=== PATIENT | male | born 1990 | race Caucasian/White ===

== ENCOUNTER → 2023-06-21 10:26 | Outpatient (REF) | payer OTHER, SELFPAY ==
[2023-06-21 10:49] VITALS: BP 124/83; BP_SYST 70
[2023-06-21 11:45] VITALS: BP 129/96
[2023-06-21 11:59] LABS: INR 1.03; PT 13.3 Sec (11.4-14.6)
== END ==
LOC: RADI 10:26
PROVIDERS: ATTENDING PHYSICIAN Family Medicine; REFERRING PHYSICIAN Physician Assistant
DX: M51.26 Other intervertebral disc displacement, lumbar region (principal); M48.061 Spinal stenosis, lumbar region without neurogenic claudication; M51.36 Other intervertebral disc degeneration, lumbar region; M54.50 Low back pain, unspecified; R20.0 Anesthesia of skin
CPT/HCPCS: 36415; 62323; 85610

== ENCOUNTER → 2023-10-02 13:25 | Outpatient (REF) | payer OTHER, SELFPAY ==
[2023-10-02 13:30] VITALS: BP 128/93; BP_SYST 94
[2023-10-02 14:30] VITALS: BP 127/82; BP_SYST 77
[2023-10-02 14:56] VITALS: BP 127/82
== END ==
LOC: RADI 13:25
PROVIDERS: ATTENDING PHYSICIAN Family Medicine
DX: M54.50 Low back pain, unspecified (principal)
CPT/HCPCS: 62323

== ENCOUNTER 2023-10-03 22:48 | Observation (INO) | payer OTHER, SELFPAY ==
[2023-10-03] VITALS (7 sets, daily range): BP systolic 106–128; BP diastolic 65–80; BMI 26.1; BMI 25.8
[2023-10-03] MEDS: NSS 1000 IV (15:53)
[2023-10-03] MEDS: FIORICET 1 TAB PO (15:54)
[2023-10-03] MEDS: BENADRYL 25 MG IV (16:02)
[2023-10-03] MEDS: REGLAN 10 MG IV (16:03)
--- NOTE | 2023-10-03 18:56 | ED.GENMED ---
History of Present Illness
<Tiera Acharya PA-C - Last Filed: 10/05/23 09:07>
General
Chief Complaint: Headache
Source: patient
Exam Limitations: none
Time Seen by Provider: 10/03/23 14:52
Nursing documentation reviewed up to this point in time: agreed with
History of Present Illness
History of Present Illness:
33 y/o M with h/o migraines previously
had an L5 epidural steroid shot by IR (musa) yesterday AM
during the procedure, the patient was told that there was a little spinal fluid so he had to reposition the needle
pt says he felt fine following the procedure
he even played a round of golf
mild back pain this morning when he woke up
gradually over the course of the morning on the way to work and while at work he got an onset of a global headache tat became severe overtime; he denies that it was very sudden in nature
but it was severe krupa with standing
he has never had a headache like that before
he tried tylenol and motrin without relief
he had no vision changes, vomiting, nausea, weakness, numbness in arms
he feels much better lying flat
Past History
<Tiera Acharya PA-C - Last Filed: 10/05/23 09:07>
Past History
ED Past Medical History: Other (Crohn's)
ED Past Surgical History: Appendectomy (bowel resection) and Tonsilectomy
Social History
Tobacco: Smoker
Alcohol: Occasional
Drug: None
Personal: Single
Living: with family
Employment: Employed
Review of Systems
<Tiera Acharya PA-C - Last Filed: 10/05/23 09:07>
Review of Systems
Allergies reviewed?: Yes
All Other Systems: Not applicable
Phy Exam
<Tiera Acharya PA-C - Last Filed: 10/05/23 09:07>
Physical Exam
Physical Exam:
GENERAL: Alert , in no apparent distress, looks comfortable lying flat
HEAD: NCAT
EYE: pupils equal and reactive, no nystagmus, minimal photophobia
NECK: Supple,full rom, nontender
ENT: o/p clr, mmm.
CARDIAC: Regular rate and rhythm . no edema
LUNGS: Clear breath sounds bilaterally, no acute respiratory distress, no wheezes/rales/rhonchi
ABDOMEN: Soft, without focal tenderness, no r/g, no cvat
NEUROLOGICAL: Alert and orientedx 4, cn intact, no facial asymmetry, 5/5 strength in UE/LE, sensation intact, romberg neg, ambulates without assistance, neg pronator drift
SKIN: Warm and dry, skin intact.
back with a bandaid; no streaking, no bruising, no bleeding, no leaking
MUSCULOSKELETAL: No edema, well perfused.
PSYCH: Normal and appropriate interaction.
Course
<Tiera Acharya PA-C - Last Filed: 10/05/23 09:07>
Orders/Labs/Results
Orders:
Orders
10/03/23 Breakfast
Regular
At Your Request: Limited Participation
10/03/23 15:48
0.9% Sodium Chloride 1000 ml [Nss] 1,000 ml IV BOLUS
Butalb/Acetaminophen/Caffeine [Fioricet] 1 tab PO NOW STA
Diphenhydramine [Benadryl] 25 mg IV NOW STA
Metoclopramide [Reglan] 10 mg IV NOW STA
10/03/23 18:09
CT Head W/o Iv Contrast Urgent
Comment:
Reason For Exam: SEVERE HEADACHE AFTER EPIDURAL
10/03/23 21:43
Butalb/Acetaminophen/Caffeine [Fioricet] 2 tab PO NOW STA
10/03/23 22:23
Admit/Transfer Patient As Directed
Co-Sign Provider:
Level of Care: Observation services
Assign to:: Medical/Surgical
Physician / Group: [facility]
Diagnosis: Headache
Code Status As Directed
Resuscitation Status: Full Code
PRN Pain Medication Management As Directed
May give lesser potent ordered pain med per pt: Yes
preference::
Protocol:: Medication orders for pain may be administered in a
manner that supports deferring to patient preference
when the pt is:
- Requesting an ordered lesser potent pain medication.
Least to most potent pain medications are defined
as: acetaminophen < NSAID < tramadol < opioids
(morphine, oxycodone, hydromorphone).
- Requesting a lesser dose of the same medication IF
ORDERED.
- Requesting a less intrusive route of administration
if both routes are prescribed by the provider (PO <
IV).
10/03/23 23:46
Acetaminophen [Tylenol] 650 mg PO Q4HPRN PRN
Ketorolac [Toradol] 15 mg IV Q6HPRN PRN
Metoclopramide [Reglan] 10 mg IV Q6HPRN PRN
10/03/23 23:46
[facility] CONSULT Routine
Consulting Provider: Eliazar Shetty
Was physician already notified: Yes
Reason for Consult/Procedure: Post-LP Headache
Acknowledgement that appropriate orders are entered: N/A
Activity As Directed
Activity Level: Bedrest
Head of Bed-Restrictions As Directed
Keep head of bed flat: Yes
I/O [Intake/ Output] As Directed
Frequency: Per unit guidelines
Neurological Checks As Directed
Frequency: q4h
Pneumatic Compression Sleeves As Directed
Type: Knee high
Vital Signs As Directed
Frequency: Per unit guidelines
Oxygen Therapy [O2 Therapy] [RESP] Routine
Titrate/Wean O2 to maintain O2 sat greater than (%): 94
DX Deep Vein Thrombosis Video Routine
10/04/23 06:18
Basic Metabolic Panel IN AM
Complete Blood Count/No Diff IN AM
Vital Signs
Initial and Last Documented VS:
Initial Vital Signs
Temp Pulse Resp BP Pulse Ox
98.0 F 76 18 128/80 98
10/03/23 14:19 10/03/23 14:19 10/03/23 14:19 10/03/23 14:19 10/03/23 14:19
Last Documented Vital Signs
Temp Pulse Resp BP Pulse Ox
98.1 F 58 18 116/72 99
10/04/23 09:13 10/04/23 09:13 10/04/23 09:13 10/04/23 09:13 10/04/23 09:13
<Chiki Rice, DO - Last Filed: 10/03/23 21:24>
Orders/Labs/Results
Orders:
Orders
10/03/23 Breakfast
Regular
At Your Request: Limited Participation
10/03/23 15:48
0.9% Sodium Chloride 1000 ml [Nss] 1,000 ml IV BOLUS
Butalb/Acetaminophen/Caffeine [Fioricet] 1 tab PO NOW STA
Diphenhydramine [Benadryl] 25 mg IV NOW STA
Metoclopramide [Reglan] 10 mg IV NOW STA
10/03/23 18:09
CT Head W/o Iv Contrast Urgent
Comment:
Reason For Exam: SEVERE HEADACHE AFTER EPIDURAL
10/03/23 21:43
Butalb/Acetaminophen/Caffeine [Fioricet] 2 tab PO NOW STA
10/03/23 22:23
Admit/Transfer Patient As Directed
Co-Sign Provider:
Level of Care: Observation services
Assign to:: Medical/Surgical
Physician / Group: [facility]
Diagnosis: Headache
Code Status As Directed
Resuscitation Status: Full Code
PRN Pain Medication Management As Directed
May give lesser potent ordered pain med per pt: Yes
preference::
Protocol:: Medication orders for pain may be administered in a
manner that supports deferring to patient preference
when the pt is:
- Requesting an ordered lesser potent pain medication.
Least to most potent pain medications are defined
as: acetaminophen < NSAID < tramadol < opioids
(morphine, oxycodone, hydromorphone).
- Requesting a lesser dose of the same medication IF
ORDERED.
- Requesting a less intrusive route of administration
if both routes are prescribed by the provider (PO <
IV).
10/03/23 23:46
Acetaminophen [Tylenol] 650 mg PO Q4HPRN PRN
Ketorolac [Toradol] 15 mg IV Q6HPRN PRN
Metoclopramide [Reglan] 10 mg IV Q6HPRN PRN
10/03/23 23:46
[facility] CONSULT Routine
Consulting Provider: Eliazar Shetty
Was physician already notified: Yes
Reason for Consult/Procedure: Post-LP Headache
Acknowledgement that appropriate orders are entered: N/A
Activity As Directed
Activity Level: Bedrest
Head of Bed-Restrictions As Directed
Keep head of bed flat: Yes
I/O [Intake/ Output] As Directed
Frequency: Per unit guidelines
Neurological Checks As Directed
Frequency: q4h
Pneumatic Compression Sleeves As Directed
Type: Knee high
Vital Signs As Directed
Frequency: Per unit guidelines
Oxygen Therapy [O2 Therapy] [RESP] Routine
Titrate/Wean O2 to maintain O2 sat greater than (%): 94
DX Deep Vein Thrombosis Video Routine
10/04/23 06:18
Basic Metabolic Panel IN AM
Complete Blood Count/No Diff IN AM
Vital Signs
Initial and Last Documented VS:
Initial Vital Signs
Temp Pulse Resp BP Pulse Ox
98.0 F 76 18 128/80 98
10/03/23 14:19 10/03/23 14:19 10/03/23 14:19 10/03/23 14:19 10/03/23 14:19
Last Documented Vital Signs
Temp Pulse Resp BP Pulse Ox
98.1 F 58 18 116/72 99
10/04/23 09:13 10/04/23 09:13 10/04/23 09:13 10/04/23 09:13 10/04/23 09:13
<Tiera Acharya PA-C - Last Filed: 10/05/23 09:07>
MDM/Problems Addressed
Differential Diagnosis Includes:
csf leak, migraine, less liely epidural csf leak
MDM/Problems Addressed:
33 y/o M
h/o migraines
here with severe positional headache
gradual onset today
had epidural injection yesterday and was told that there may have been a littel spinal fluid leak
pt examines like csf leak headache
looks well lying down
normal exam
minimal photophobia
neuro intact
pain wors with sitintg up
noo vision loss
d/w ed attending
i also spoke with both anesthesiologist and dr. shetty on for IR and ultimately dr. vigil
they all agree that this is likely csf leak and would offer blood patch, as outaptient tomorrow
pt was treated with migraine meds and feels much better
arrived and said that he told her it was a sudden onset of worst headache of life; this was not the story he told me
d/w christiana noguera will CT noncon head and likely d/c home
i do suspect this was more gradual and there was some miscommunication because he was so sore
<Tiera Acharya PA-C - Last Filed: 10/05/23 09:07>
*Critical Care Note
Total Time (30-74mins, 75-104mins- exclusive of procedures): Not Applicable
ED Attending Note
<Tiera Acharya PA-C - Last Filed: 10/05/23 09:07>
-
Portions of this chart may have been created with voice recognition software.� Occasional wrong word or��sound alike� substitutions may have occurred due to the inherent limitations of voice recognition software.
<Chiki Rice DO - Last Filed: 10/03/23 21:24>
ED Attending Note
Patient seen and examined by attending physician: Yes
I performed the substantive portion of visit, reviewed & personally made and approve the management plan that is documented in note by myself or LIBERTY.: Yes
ED Attending Note:
33-year-old male presents with postural headache after epidural tamp that likely did puncture the door. On my evaluation he appears well. CT does show some pneumocephalus. Case was discussed with interventional radiology as well as neurosurgery
and the consensus is not to do anything different in this case. However he is unable to stand up without severe headache. Will admit for likely blood patch by IR in the morning.
Discharge Plan
Departure
Patient Disposition: Admit
Date of Disposition: 10/03/23
Time of Disposition: 21:23
Admit to: Med/Surg
Presentation/result/management discussed w/ accepting MD/DO: Hospitalist
Condition: Fair
Discharge Problem:
CSF leak, Headache, postoperative pneumocephalus
Interventions
Interventions:
*Risk Screen - Suicide Last Done: 10/03/23 14:23
*General Assessment Last Done: 10/03/23 14:23
*Neglect/Abuse Screening Last Done: 10/03/23 14:23
ED- Fall Risk Assessment Last Done: 10/03/23 16:09
*ED COVID-19 Vaccine History Last Done: 10/03/23 16:10
*Nursing Disposition Last Done: 10/03/23 23:40
ED- Neurological Assessment Last Done: 10/03/23 16:09
Discharge Date and Time
Discharge Date/Time: 10/03/23 23:40
[2023-10-03] MEDS: FIORICET 2 TAB PO (21:49)
--- NOTE | 2023-10-03 22:28 | HPS.HSE ---
Family Physician
-
Family Physician: Diego Johnson
Chief Complaint
-
Headache
History of Present Illness
Patient is a 33y M with PMH significant for ADHD and low back pain who presents to ED complaining of headache. Patient states that he underwent LESI on 10/01 for chronic low back pain. He felt fairly well post-procedure and even played golf
yesterday afternoon. He had a mild headache last PM. He woke this AM with worse headache. When he went to work, he noted that headache was quite severe when standing / sitting upright. Pain was much improved by lying flat. Symptoms persisted
throughout the day and patient presented to the ED for further evaluation.
In the ED, patient continues to positional headache despite medications given here.
He is fairly comfortable when lying supine.
Medical History
Past Medical History
Past Medical History: Reports Other
Additional Past Medical History:
ADHD
Low Back Pain
Crohn's Disease
Past Surgical History: Reports Other
Additional Past Surgical History:
Appendectomy
Partial Small Bowel Resection
Social History
Tobacco: Former Smoker (Brief smoking in early 20s.)
Alcohol: Occasional
Drug: None
Personal:
Family History
Family History: Not pertinent
Allergies / Home Medications
Allergies reflects when Allergies were last updated in [facility].
Home Medications with original date entered in [facility]
Allergy/Medication List:
Allergies
Allergy/AdvReac Type Severity Reaction Status Date / Time
No Known Allergies Allergy Verified 08/25/18 19:57
Home Medications
dextroamphetamine-amphetamine 5 mg tablet (Adderall) 5 mg PO DAILY 06/21/23
butalbital 50 mg-acetaminophen 300 mg-caffeine 40 mg-codeine 30 mg cap (Fioricet with Codeine) 1 cap PO Q4H PRN HEADACHE #10 caps 10/03/23
Review of Systems
-
History Source: Patient
A 12 point ROS was completed and negative except as noted: Yes
Constitutional: Denies Fever or Chills
Respiratory: Denies Cough or Trouble Breathing
Cardiac: Denies Chest Pain or Palpitations
Abdomen/GI: Denies Abdominal Pain, Nausea, Vomiting or Diarrhea
: Denies Dysuria, Frequency or Flank Pain
Neurological: Reports Dizzy and Headache
Psych: Denies Depression or Anxiety
Physical Exam
Vital Signs
Vital Signs
Temp Pulse Resp BP Pulse Ox
98.0 F 70 14 106/67 98
10/03/23 14:19 10/03/23 20:30 10/03/23 20:30 10/03/23 19:00 10/03/23 14:19
Physical Exam
General: Other (33y M in mild distress due to headache)
HEENT: Moist mucous membranes and PERRLA
Respiratory: Clear; No Wheezes, Rales or Rhonchi
Cardiac: S1/S2 and Regular Rhythm; No Murmur
GI: Soft, Non Tender, Non Distended and Normal Bowel Sounds
Musculoskeletal: No Clubbing, No Cyanosis and No Edema
Neuro: AO x 3 and Nonfocal/grossly intact
Impression/Plan
-
A/P: Patient is a 33y M with PMH significant for ADHD and Crohn's (not on any active treatment) who presents to ED complaining of headache s/p LESI done yesterday.
Post-LP Headache
- Observe overnight for further evaluation and treatment.
- Maintain supine positioning / head of bed flat.
- Meds as needed for additional pain control.
- IR eval in the AM for probable blood patch.
- Follow for any new / worsening symptoms in the interim.
ADHD
Low Back Pain
Crohn's Disease
- Stable. No other acute / active symptoms at this time.
DVT Prophylaxis: SCDs
Code Status: Full
[2023-10-04] MEDS: TORADOL 15 MG IV
--- NOTE | 2023-10-04 00:34 | PTCARENOTE ---
Pt. arrived to unit from ED via stretcher. Pt. able to safely ambulate into room 318-2. Pt. AAOx3, pleasant, able to make needs known. Boxed lunch provided. Oriented to unit. Call iverson within reach. Plan of care ongoing.
[2023-10-04 06:47] LABS: Hematocrit 38.1 % (39.0-52.0); Hemoglobin 13.2 g/dL (13.0-18.0); Mean Corp Hgb Conc. 34.6 g/dL (33.0-37.0); Mean Corpuscular Hgb 28.1 pg (27.0-31.0); Mean Corpuscular Volume 81.1 fL (80.0-94.0); Mean Platelet Volume 10.8 fL (7.4-10.4); Platelet Count 205 10^3/uL (130-400); Red Cell Dist. Width 12.6 % (11.5-14.5); White Blood Cell Count 7.4 10^3/uL (4.8-10.8)
[2023-10-04 07:00] VITALS: BP 90/47
[2023-10-04 07:09] LABS: Blood Urea Nitrogen 23 mg/dl (9-20); Calcium 8.7 mg/dl (8.4-10.2); Carbon Dioxide 24 mmol/L (22-30); Chloride 109 mmol/L (98-107); Estimated Creatinine Clearance > 125 ml/min; Glucose 103 mg/dl (70-99); Potassium 4.3 mmol/L (3.5-5.1); Sodium 137 mmol/L (135-145); eGFR > 60.00
--- NOTE | 2023-10-04 07:45 | W.PN.HOSP.TC ---
Addendum entered and electronically signed by Joesph Suarez MD 10/04/23 10:27:
I saw and evaluated the patient. I reviewed the resident�s note and agree with findings and plan as documented in the resident�s note.
No h/a while laying flat.
Gen: NAD, AAOx3.
Eyes: EOMI, PERRLA, no scleral icterus.
Neck: supple.
CV: RRR, +S1/S2, no m/r/g.
Resp: CTAB, no rales, wheezes, or rhonchi.
Abd: +BS, soft, NT, ND
Skin: No rashes.
Neuro: CN 2-12 intact, non-focal.
Psych: Normal mood and affect.
Spinal headache:
-s/p blood patch this AM
-d/c later today after laying supine for 2 hours post-procedure
Original Note:
Today's Communication/Plan
-
d/c home today
Assessment / Plan
Assessment / Plan
#Post-LP Headache- Spinal headache
- Received Blood patch with IR today
- L5 epidural steroid shot by IR (musa) on 10/02/23
- Maintain supine positioning / head of bed flat.
- Tylenol and toradol as needed for additional pain control.
- Headache should start to improve by this evening or tomorrow.
- encouraged patient to take it easy for a few days and maintain hydration
- CT: Multiple scattered small foci of pneumocephalus are likely secondary to the reported history of a recent epidural injection.
#ADHD
#Low Back Pain
#Crohn's Disease
- Stable. No other acute / active symptoms at this time.
DVT Prophylaxis: SCDs
Code Status: Full
Anticipated Discharge: Today
Subjective/Interval History
-
Date of Service: October 04, 2023
Objective Data
-
Labs:
Laboratory Results
10/04/23
06:18
WBC 7.4
Hgb 13.2
Hct 38.1 L
Plt Count 205
Sodium 137
Potassium 4.3
Chloride 109 H
Carbon Dioxide 24
BUN 23 H
Creatinine 0.8
Glucose 103 H
Calcium 8.7
Vital Signs:
Vital Signs
Temp Pulse Resp BP Pulse Ox
97.9 F 70 18 112/65 97
10/03/23 23:48 10/03/23 23:48 10/03/23 23:48 10/03/23 23:48 10/03/23 23:48
I&O
10/03/23 10/04/23 10/05/23
06:59 06:59 06:59
Intake Total 480 / 480
Balance 480 / 480
Review of Systems
-
History Source: Patient
Constitutional: Denies Fever
Respiratory: Denies Cough
Cardiac: Denies Chest Pain
Abdomen/GI: Denies Abdominal Pain
Musculoskeletal: Denies Joint Pain
Neuro: Reports Headache; Denies Dizzy, Weakness or Numbness
Hematologic / Lymphatic: Denies Bleeding
Physical Exam
-
General: Well Developed and Well Nourished
HEENT: Normocephalic and Atraumatic
Respiratory: Clear to Auscultation
Cardiac: Regular Rhythm
GI: Soft, Nontender and Nondistended
Skin: Warm, Dry and Rash
Neuro: Awake, Alert, Oriented and Nonfocal/Grossly Intact
Psych: Calm
Data Reviewed
-
CT Scan: Report Reviewed by me and Discussed with Physician
Labs: Labs Reviewed by me, Discussed with Physician and Discussed with Patient
[2023-10-04 08:00] VITALS: BP 114/73; BP_SYST 57
--- NOTE | 2023-10-04 08:46 | W.PN.UPDATE ---
Update Note
Progress Note Update
Positional spinal headache after lumbar epidural steroid injection. Headache is severe, only occurs when standing, and began the morning after the TALAT.
During TALAT, the dura/arachnoid at L4-5 was inadvertently punctured with the 22 gauge spinal needle, as evidenced by CSF coming through the needle. This was discussed with the patient at the time of discovery, and a separate injection was
successfully performed at L5-S1. Patient was reassured that spinal headache and other complications of dural puncture are low.
Unfortunately he did develop spinal headache, likely due to low CSF pressure from leakage from the dural puncture at L4-5. These headaches tend to resolve eventually without treatment, however blood patch is a way to try to 'plug the hole' more
quickly, and therefore improve the headache more quickly.
Blood patch performed - 10 cc of the patient's blood was injected into the epidural space at L4-5. Bedrest for 2 hours to give blood time to seal the leak, and then stable for discharge from IR perspective. Headache should start to improve by this
evening or tomorrow, encouraged patient to take it easy for a few days and drink alot of water. Caffeine also usually helps.
All patient questions answered.
[2023-10-04 09:13] VITALS: BP 116/72
--- NOTE | 2023-10-04 10:25 | W.DCSUMMARY ---
Addendum entered and electronically signed by Joesph Suarez MD 10/04/23 12:58:
Read, reviewed, and agree. See same day progress note for additional details.
Original Note:
Discharge Summary
Discharge Data
Date of Admission: 10/03/23
Date of Discharge: 10/04/23
-
Pending Results: No
Hospital Course
Discharging Physician : Yves Patel MD ; Joesph Suarez MD
Disposition : Home
Primary care physician : Diego Johnson
Principal Discharge diagnosis : Spinal headache
Chronic Discharge diagnosis : ADHD, low back pain, Crohn's disease, migraine
Hospital Course : 33-year-old male with history of migraines presented to the emergency department with complaints of severe headache. Reportedly patient had an L5 epidural steroid injection on 10/02/2023 and he felt fine following the procedure and
even was able to play a round of golf. On 10/03/2023 he started to notice sudden onset of global headache that became severe over time especially with standing. He denied any other constitutional symptoms including vision changes, vomiting, nausea,
vomiting weakness, numbness. He was evaluated and a CT Head was performed which showed multiple scattered small foci of pneumocephalus likely secondary to reported history of recent epidural injection. Patient was admitted in hospital for
consideration of blood patch by IR. Patient was seen by IR in the morning and received a blood patch-10 cc of patient's blood was injected into the epidural space at L4-5. Bedrest for 2 hours was recommended to give adequate time for blood to seal
the leak. Patient was cleared by IR for discharge. Patient was informed that his headache should start to improve by this evening or tomorrow. Patient reports his headache is now 3/10 which was initially 10/10. He was also encouraged to maintain
hydration
Important imaging findings : CT Head W/o Iv Contrast
FINDINGS:
The ventricles are normal in size, configuration, and position. Multiple scattered small foci of pneumocephalus noted in the right frontal and parietal convexities, along the septum pellucidum, and in the basal cisterns. No intra- or extra-axial
mass, hemorrhage, or fluid collection. No areas of abnormal mass effect or attenuation are noted. The imaged paranasal sinuses and mastoid air cells are clear.
IMPRESSION:
Multiple scattered small foci of pneumocephalus are likely secondary to the reported history of a recent epidural injection.
Procedure findings : Fluoroscopically guided lumbar spine epidural blood patch- Technically successful epidural blood patch
Discharge Plan
-
Patient Disposition: Home (Routine Discharge)
Discharge Diagnosis/Procedures: Spinal headache, ADHD, low back pain, Crohn's disease, migraine
Condition: Good
Diet: No restrictions
Activity: No restrictions
Additional Activity: No strenuous activity for 2 to 3 days.
Driving Restrictions: As prior to admission
Bathing Restrictions: None
Referrals:
Diego Johnson MD [Family Provider] - in less than 1 week
Prescriptions:
New
[id number] [Fioricet with Codeine] [id number] mg capsule
1 cap PO Q4H PRN (Reason: HEADACHE) Qty: 10 0RF
No Action
dextroamphetamine-amphetamine [Adderall] 5 mg Tablet
5 mg PO DAILY
Discharge Orders:
Discharge Patient (As Directed); Ordered 10/04/23
Ordered By: Yves Patel
Discharge Date and Time
Print Language: [id number]
== END 2023-10-04 12:04 | disposition home or self-care (01) ==
LOC: 3 WEST ACU 22:48
PROVIDERS: ADMITTING PHYSICIAN Hospitalist; ATTENDING PHYSICIAN Internal Medicine; EMERGENCY PHYSICIAN Emergency Medicine; FAMILY PHYSICIAN Family Medicine
DX: G97.1 Other reaction to spinal and lumbar puncture (principal); Y84.4 Aspiration of fluid as the cause of abnormal reaction of the patient, or of later complication, without mention of misadventure at the time of the procedure; Y92.9 Unspecified place or not applicable; R51.9 Headache, unspecified; F17.200 Nicotine dependence, unspecified, uncomplicated; K50.90 Crohn's disease, unspecified, without complications; G93.89 Other specified disorders of brain; F90.9 Attention-deficit hyperactivity disorder, unspecified type; M54.50 Low back pain, unspecified; G89.29 Other chronic pain; Z90.49 Acquired absence of other specified parts of digestive tract
CPT/HCPCS: 62273; 70450; 80048; 85027; 96361; 96374; 96375; 99285; G0378

== ENCOUNTER 2023-10-08 13:22 | Outpatient (REF) | payer OTHER, SELFPAY ==
[2023-10-08 13:33] VITALS: BP 129/81; BP_SYST 84
[2023-10-08 15:30] VITALS: BP 115/67
[2023-10-08] MEDS: TYLENOL 650 MG PO (16:13)
[2023-10-08 16:30] VITALS: BP 116/74
== END 2023-10-08 16:43 | disposition home or self-care (01) ==
LOC: RADI 13:22
PROVIDERS: ATTENDING PHYSICIAN Radiology Vascular & Interventional Radiology; FAMILY PHYSICIAN Family Medicine
DX: G97.1 Other reaction to spinal and lumbar puncture (principal); Y84.4 Aspiration of fluid as the cause of abnormal reaction of the patient, or of later complication, without mention of misadventure at the time of the procedure
CPT/HCPCS: 62273

== ENCOUNTER 2023-10-08 23:42 | Observation (INO) | payer OTHER, SELFPAY ==
[2023-10-08 21:21] VITALS: BP 123/80
[2023-10-08 21:47] VITALS: BP 121/70
[2023-10-08 21:50] VITALS: BMI 26.0
[2023-10-08 22:00] VITALS: BP 124/76
--- NOTE | 2023-10-08 22:30 | ED.GENMED ---
History of Present Illness
General
Chief Complaint: Headache
Source: patient, spouse and physician
Exam Limitations: none
Time Seen by Provider: 10/08/23 21:56
Nursing documentation reviewed up to this point in time: agreed with
History of Present Illness
History of Present Illness:
Patient very pleasant 33-year-old male presents with headache, he underwent epidural steroid injection recently, postoperatively had a headache had a blood patch did not really help too much was started on Fioricet with some relief recently had a
second blood patch did not get too much relief, having headaches when he sits forward, feels better lying flat, nausea without vomiting no fevers, he spoke with his treating physician referred him here, plan for some caffeine, consideration for MRI
to look for low flow state versus other causes does not chronically get headaches,
Past History
Past History
ED Past Medical History: Other (Crohn's)
ED Past Surgical History: Appendectomy (bowel resection) and Tonsilectomy
Social History
Tobacco: Smoker
Alcohol: Occasional
Drug: None
Personal: Single
Living: with family
Employment: Employed
Review of Systems
Review of Systems
All Other Systems: Not applicable
Constitutional: Denies fever or fatigue
Respiratory: Reports no symptoms
Cardiac: Reports no symptoms
ABD/GI: Reports nausea
Musculoskeletal: Reports no symptoms
Neurological: Reports headache
Psychiatric: Reports no symptoms
Phy Exam
Physical Exam
Physical Exam:
Physical Exam
General: Nontoxic male lying lights are off
Neck: No jaundice
Lungs: no acute respiratory distress. clear bilaterally
Neuro: alert and oriented. no focal neurological deficits
Skin: no rash
Psychiatric: well kept. interactive and cooperative
Extremities: no edema.
Course
Orders/Labs/Results
Orders:
Orders
10/08/23 22:11
0.9% Sodium Chloride 1000 ml [Nss] 1,000 ml IV BOLUS
10/08/23 22:19
Acetaminophen 1000MG/100Ml [Ofirmev] 1,000 mg in 100 ml IV ONCE
Acetaminophen IV Indication:: ED Narcotic Naive Pt-ONCE
10/08/23 22:27
Caffeine Citrate [Caffeine Citrate Oral Solution] 300 mg PO NOW STA
10/08/23 22:30
Complete Blood Count/With Diff Urgent
Comprehensive Metabolic Panel Urgent
10/09/23 06:00
MRI Brain [MR Brain W/o & With Contrast] IN AM
Comment:
Reason For Exam: post dural headache
OK for patient to be off Cardiac Monitoring for MRI: Yes
Recent pill cam endoscopy?: No
Abnormal Lab Results
10/08/23
22:30
WBC 11.6 H 10^3/uL
(4.8-10.8)
MPV 10.7 H fL
(7.4-10.4)
Abs Immat Gran (auto) 0.1 H 10^3/uL
(0-0.05)
Absolute Neuts (auto) 8.0 H 10^3/uL
(1.4-6.5)
Absolute Monos (auto) 0.8 H 10^3/uL
(0.1-0.6)
Lymphocytes % 18.6 L %
(20.5-51.1)
BUN 23 H mg/dl
(9-20)
Glucose 108 H mg/dl
(70-99)
ALT 60 H U/L
(0-50)
10/08/23 22:30
10/08/23 22:30
Vital Signs
Initial and Last Documented VS:
Initial Vital Signs
Temp Pulse Resp BP Pulse Ox
98.5 F 83 16 123/80 98
10/08/23 21:21 10/08/23 21:21 10/08/23 21:21 10/08/23 21:21 10/08/23 21:21
Last Documented Vital Signs
Temp Pulse Resp BP Pulse Ox
98.5 F 76 22 121/70 95
10/08/23 21:21 10/08/23 21:47 10/08/23 21:47 10/08/23 21:47 10/08/23 21:47
MDM/Problems Addressed
Differential Diagnosis Includes:
Postdural headache, low-flow headache doubt [employer] TE[employer]ER infection
Patient had a CT a few days ago will not repeat as he looks well
MDM/Problems Addressed:
Headache
*Radiology
Radiology exam reviewed: other (Verbal report on his CT from his referring radiologist from a few days a)
*Pulse Oximetry
Patient hypoxic: no
*Critical Care Note
Total Time (30-74mins, 75-104mins- exclusive of procedures): Not Applicable
Data Reviewed
Review of Other/Old Records Reveals: Labs
Source: patient and spouse
Prescriptions/Medications Considered But Not Given:
Steroid
Further Testing Considered But Not Given:
MRI ordered routine in a.m.
Update Note
Update Note:
Update numerous discussions with referring interventional radiologist General radiology will be admitted, will start on fluids Tylenol caffeine MRI in the a.m., I do not think this is a [employer] TE[employer] infection
ED Attending Note
-
Portions of this chart may have been created with voice recognition software.� Occasional wrong word or��sound alike� substitutions may have occurred due to the inherent limitations of voice recognition software.
Discharge Plan
Departure
Patient Disposition: Admit
Date of Disposition: 10/08/23
Time of Disposition: 23:00
Admit to: Med/Surg
Presentation/result/management discussed w/ accepting MD/DO: Hospitalist
Patient with high blood pressure during this ER visit?: No
Condition: Good
Discharge Problem:
CSF leak, Headache
Prescriptions:
No Action
dextroamphetamine-amphetamine [Adderall] 5 mg Tablet
5 mg PO DAILY
rnifdnjwuk-[id number] [Fioricet with Codeine] [id number] mg capsule
1 cap PO Q4H PRN (Reason: HEADACHE) Qty: 10 0RF
Referrals:
Diego Johnson MD [Family Provider] -
Interventions
Interventions:
*Risk Screen - Suicide Last Done: 10/08/23 21:52
*General Assessment Last Done: 10/08/23 21:21
*Neglect/Abuse Screening Last Done: 10/08/23 21:52
ED- Fall Risk Assessment Last Done: 10/08/23 21:52
ED- Neurological Assessment Last Done: 10/08/23 21:50
Discharge Date and Time
Print Language: BURMESE
[2023-10-08] MEDS: NSS 1000 IV (22:32)
[2023-10-08] MEDS: OFIRMEV 100 IV (22:32)
[2023-10-08 22:42] LABS: % Basophils 0.3 % (0-2); % Eosinophils 4.2 % (0-6); % Immature Granulocytes 0.5 % (0-0.5); % Lymphocytes 18.6 % (20.5-51.1); % Monocytes 7.1 % (1.7-9.3); % Neutrophils 69.3 % (42.2-75.2); Absolute Eosinophils 0.5 10^3/uL (0-0.7); Absolute Immature Granulocytes 0.1 10^3/uL (0-0.05); Absolute Lymphocytes 2.2 10^3/uL (1.2-3.4); Absolute Monocytes 0.8 10^3/uL (0.1-0.6); Hematocrit 42.2 % (39.0-52.0); Hemoglobin 14.8 g/dL (13.0-18.0); Mean Corp Hgb Conc. 35.1 g/dL (33.0-37.0); Mean Corpuscular Hgb 28.1 pg (27.0-31.0); Mean Corpuscular Volume 80.1 fL (80.0-94.0); Mean Platelet Volume 10.7 fL (7.4-10.4); Nucleated Red Blood Cells % 0 % (-); Platelet Count 318 10^3/uL (130-400); Red Blood Cell Count 5.27 10^6/uL (4.70-6.10); Red Cell Dist. Width 12.8 % (11.5-14.5); White Blood Cell Count 11.6 10^3/uL (4.8-10.8)
[2023-10-08 22:58] LABS: ALT (SGPT) 60 U/L (0-50); AST (SGOT) 40 U/L (17-59); Albumin 4.2 g/dl (3.5-5.0); Alkaline Phosphatase 76 U/L (38-126); Blood Urea Nitrogen 23 mg/dl (9-20); Calcium 9.2 mg/dl (8.4-10.2); Carbon Dioxide 26 mmol/L (22-30); Chloride 104 mmol/L (98-107); Estimated Creatinine Clearance > 125 ml/min; Glucose 108 mg/dl (70-99); Potassium 4.2 mmol/L (3.5-5.1); Sodium 137 mmol/L (135-145); Total Bilirubin 0.5 mg/dl (0.2-1.3); Total Protein 6.7 g/dl (6.3-8.2); eGFR > 60.00
[2023-10-08 23:00] VITALS: BP 108/56
[2023-10-08] MEDS: CAFFEINE CITRATE ORAL SOLUTION 300 MG PO (23:01)
--- NOTE | 2023-10-08 23:45 | HPS.HSE ---
Family Physician
-
Family Physician: Diego Johnson
Chief Complaint
-
Headache
History of Present Illness
Patient is a 33y M with PMH significant for ADHD and low back pain who presents to ED complaining of headache. Patient states that he underwent LESI on 10/01 for chronic low back pain. He was admitted to on 10/02 with spinal headache
post-procedure. Patient has received blood patch x 2 on 10/03 and again on 10/07.
He feels very well when lying supine. He has no fevers / chills, numbness, tingling, focal weakness, etc. No vision changes.
Today after blood patch, patient was at home and increased his position to about 30 degrees or so. He promptly developed recurrent headache. His symptoms fully resolve when lying supine.
Patient spoke with IR who advised his return to the ED for further evaluation including MRI.
Medical History
Past Medical History
Past Medical History: Reports Other
Additional Past Medical History:
ADHD
Low Back Pain
Crohn's Disease
Past Surgical History: Reports Other
Additional Past Surgical History:
Appendectomy
Partial Small Bowel Resection
Social History
Tobacco: Former Smoker (Brief smoking in early 20s.)
Alcohol: Occasional
Drug: None
Personal:
Family History
Family History: Not pertinent
Allergies / Home Medications
Allergies reflects when Allergies were last updated in [employer].
Home Medications with original date entered in [employer]
Allergy/Medication List:
Allergies
Allergy/AdvReac Type Severity Reaction Status Date / Time
No Known Allergies Allergy Verified 08/25/18 19:57
Home Medications
dextroamphetamine-amphetamine 5 mg tablet (Adderall) 5 mg PO DAILY Neurological Condition 06/21/23
butalbital 50 mg-acetaminophen 300 mg-caffeine 40 mg-codeine 30 mg cap (Fioricet with Codeine) 1 cap PO Q4H PRN HEADACHE #10 caps 10/03/23
Review of Systems
-
History Source: Patient
A 12 point ROS was completed and negative except as noted: Yes
Constitutional: Denies Fever or Chills
EENT: Denies Sore Throat
Respiratory: Denies Cough or Trouble Breathing
Cardiac: Denies Chest Pain or Palpitations
Abdomen/GI: Denies Abdominal Pain, Nausea, Vomiting or Diarrhea
: Denies Dysuria or Frequency
Musculoskeletal: Denies Joint Pain or Edema
Neurological: Reports Headache; Denies Dizzy
Psych: Denies Depression or Anxiety
Physical Exam
Vital Signs
Vital Signs
Temp Pulse Resp BP Pulse Ox
98.5 F 68 19 108/56 94
10/08/23 21:21 10/08/23 23:00 10/08/23 23:00 10/08/23 23:00 10/08/23 23:00
Physical Exam
General: Other (33y M in mild distress due to headache)
HEENT: Moist mucous membranes and PERRLA
Respiratory: Clear; No Wheezes, Rales or Rhonchi
Cardiac: S1/S2 and Regular Rhythm; No Murmur
GI: Soft, Non Tender, Non Distended and Normal Bowel Sounds
Musculoskeletal: No Clubbing, No Cyanosis and No Edema
Neuro: AO x 3 and Nonfocal/grossly intact
Laboratory Results
-
10/08/23 22:30
10/08/23 22:30
Laboratory Results
Total Bilirubin 0.5 mg/dl (0.2-1.3) 10/08/23 22:30
AST 40 U/L (17-59) 10/08/23 22:30
ALT 60 U/L (0-50) H 10/08/23 22:30
Alkaline Phosphatase 76 U/L (38-126) 10/08/23 22:30
Impression/Plan
-
A/P: Patient is a 33y M with PMH significant for ADHD and Crohn's (not on any active treatment) who presents to ED complaining of recurrent spinal headache
Spinal Headache
- Observe overnight for further evaluation and treatment.
- Maintain supine positioning / head of bed flat.
- Meds as needed for additional pain control.
- IR eval in the AM for additional recommendations.
- Check MRI with / without contrast.
- Follow for any new / worsening symptoms in the interim.
ADHD
Low Back Pain
Crohn's Disease
- Stable. No other acute / active symptoms at this time.
DVT Prophylaxis: SCDs
Code Status: Full
[2023-10-09 00:40] VITALS: BP 110/64; BMI 25.7
[2023-10-09] MEDS: LR 1000 IV ×3 (01:28→20:54)
--- NOTE | 2023-10-09 01:33 | PTCARENOTE ---
Pt. arrived to unit from ED via stretcher. Pt. able to safely ambulate into room 336-1 on . Pt. AAOx3 and able to make needs known. Offers no complaints at this time. Oriented to unit. Call iverson within reach. Plan of care ongoing.
[2023-10-09 06:03] LABS: Hematocrit 41.5 % (39.0-52.0); Mean Corp Hgb Conc. 33.7 g/dL (33.0-37.0); Mean Corpuscular Hgb 28.5 pg (27.0-31.0); Mean Corpuscular Volume 84.3 fL (80.0-94.0); Mean Platelet Volume 10.4 fL (7.4-10.4); Platelet Count 277 10^3/uL (130-400); Red Blood Cell Count 4.92 10^6/uL (4.70-6.10); Red Cell Dist. Width 12.8 % (11.5-14.5); White Blood Cell Count 10.1 10^3/uL (4.8-10.8)
[2023-10-09 06:25] LABS: Blood Urea Nitrogen 20 mg/dl (9-20); Carbon Dioxide 28 mmol/L (22-30); Chloride 105 mmol/L (98-107); Estimated Creatinine Clearance > 125 ml/min; Glucose 94 mg/dl (70-99); Potassium 4.4 mmol/L (3.5-5.1); Sodium 137 mmol/L (135-145); eGFR > 60.00
[2023-10-09 07:54] VITALS: BP 110/62
--- NOTE | 2023-10-09 09:10 | W.PN.HOSP.TC ---
Addendum entered and electronically signed by Yulia Kam MD 10/09/23 13:04:
I saw and evaluated the patient independently. I reviewed the resident�s note and agree with findings and plan as documented by Dr. [place].
GENERAL: well developed, well nourished, male in no apparent distress
HEENT: NC/AT
HEART: regular rate and rhythm, +S1, +S2
LUNGS : clear to auscultation bilaterally
ABDOM: soft, nontender, nondistended, + bowel sounds
EXT: no cyanosis, clubbing, or edema
NEUROLOGIC: grossly intact
Headache--presumed spinal s/p epidural injection ( not LP, pt had epidural not LP) -- had 2 blood patches without relief--MRI within normal limits--await IR input for next steps - Maintain supine positioning / head of bed flat - Tylenol and toradol
as needed for additional pain control- encouraged patient to take it easy for a few days and maintain hydration- CT on admission: Multiple scattered small foci of pneumocephalus are likely secondary to the reported history of a recent epidural
injection--consideration for neuro consult, did receive IV caffeine in ED
ADHD- Continue home meds PRN
Low Back Pain--s/p epidural injection
Crohn's Disease - Stable. No other acute / active symptoms at this time.
DVT Prophylaxis: SCDs
Code Status: Full
Original Note:
Today's Communication/Plan
-
Patient's MRI shows no acute intracranial abnormalities. Awaiting IR consult.
Assessment / Plan
Assessment / Plan
#Post-LP Headache- Spinal headache
- Received Blood patch with IR today
- L5 epidural steroid shot by IR ([facility]) on 10/02/23
- Maintain supine positioning / head of bed flat.
- Tylenol and toradol as needed for additional pain control.
- Headache should start to improve by this evening or tomorrow.
- encouraged patient to take it easy for a few days and maintain hydration
- IR input appreciated
- MRI shows no acute intracranial abnormality. 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
- CT: Multiple scattered small foci of pneumocephalus are likely secondary to the reported history of a recent epidural injection.
#ADHD
- Continue home meds PRN
#Low Back Pain
#Crohn's Disease
- Stable. No other acute / active symptoms at this time.
DVT Prophylaxis: SCDs
Code Status: Full
Anticipated Discharge: 24 - 48 hours
Subjective/Interval History
-
Date of Service: October 09, 2023
Objective Data
-
Labs:
Laboratory Results
10/08/23 10/09/23
22:30 05:32
WBC 11.6 H 10.1
Hgb 14.8 14.0
Hct 42.2 41.5
Plt Count 318 D 277
Sodium 137 137
Potassium 4.2 4.4
Chloride 104 105
Carbon Dioxide 26 28
BUN 23 H 20
Creatinine 0.9 0.9
Glucose 108 H 94
Calcium 9.2 9.0
Total Bilirubin 0.5
AST 40
ALT 60 H
Alkaline Phosphatase 76
Vital Signs:
Vital Signs
Temp Pulse Resp BP Pulse Ox
97.8 F 69 18 110/62 96
10/09/23 07:54 10/09/23 07:54 10/09/23 07:54 10/09/23 07:54 10/09/23 07:54
I&O
10/08/23 10/09/23 10/10/23
06:59 06:59 06:59
Intake Total 990 / 990
Balance 990 / 990
Review of Systems
-
History Source: Patient
EENT: Reports No Symptoms Reported; Denies Blurry Vision or Eye Pain
Respiratory: Reports No Symptoms
Cardiac: Reports No Symptoms
Abdomen/GI: Reports No Symptoms
Neuro: Reports Headache; Denies Weakness, Numbness, Ataxia or Tremors
Physical Exam
-
General: Well Developed, Well Nourished and No Apparent Distress
HEENT: Normocephalic
Respiratory: Clear to Auscultation
Cardiac: Regular Rhythm and S1/S2
Neuro: AO x 3; Negative Tremors or Slurred Speech
Psych: Calm
--- NOTE | 2023-10-09 13:52 | CM ---
CM met with pt at bedside
Pt reports lives with his and 4 daughters in a 2 story home
Independent, working FT, drives
DME - none
SNF/HH - no past hx
Has ride at d/c
PCP - Dr Diego Johnson
Pharm - [facility]
Discussed OBS status
Plan - anticipate home no needs
[2023-10-09] MEDS: TYLENOL 650 MG PO (14:09)
[2023-10-09 16:13] VITALS: BP 123/73
--- NOTE | 2023-10-09 18:02 | W.PN.UPDATE ---
Update Note
Progress Note Update
Pt underwent lumbar TALAT 10/02/23, inadvertent dural puncture at L4-5 level during procedure. TALAT subsequently performed L5-S1 level. Developed headache shortly after procedure.
CT head 10/03/23 showed small volume pneumocephalus, otherwise negative.
Underwent blood patch 10/04/23 and 10/08/23 without relief. COLLINS remains positional, improve while recumbent and worse upright.
MRI 10/09/23 with incidental pineal cyst, no findings suggesting intracranial hypotension.
Today relatively comfortable while recumbent, has spent limited time sitting up and upright.
Considerations at this point 1) persistent PDPHA, 2) rebound intracranial hypertension, 3)aseptic/chemical meningitis related to initial procedure.
Clinical course with essentially only sx being positional COLLINS improved while recumbent would be atypical for rebound hypertension and chemical meningitis. At this point, patient is understandably wary of undergoing LP for further evaluation.
Recommend Neurology consultation for any additional considerations and continued symptomatic tx at this time.
d/w Dr Kam
[2023-10-09] MEDS: TORADOL 15 MG IV (20:57)
[2023-10-09 23:05] VITALS: BP 119/66
[2023-10-10 06:43] LABS: Hemoglobin 13.7 g/dL (13.0-18.0); Mean Corp Hgb Conc. 33.4 g/dL (33.0-37.0); Mean Corpuscular Hgb 27.7 pg (27.0-31.0); Mean Platelet Volume 10.3 fL (7.4-10.4); Platelet Count 285 10^3/uL (130-400); Red Blood Cell Count 4.94 10^6/uL (4.70-6.10); Red Cell Dist. Width 12.9 % (11.5-14.5); White Blood Cell Count 8.3 10^3/uL (4.8-10.8)
[2023-10-10 07:05] LABS: Blood Urea Nitrogen 24 mg/dl (9-20); Calcium 9.2 mg/dl (8.4-10.2); Carbon Dioxide 30 mmol/L (22-30); Chloride 106 mmol/L (98-107); Estimated Creatinine Clearance > 125 ml/min; Glucose 96 mg/dl (70-99); Potassium 4.8 mmol/L (3.5-5.1); Sodium 140 mmol/L (135-145); eGFR > 60.00
[2023-10-10 07:51] VITALS: BP 118/74
--- NOTE | 2023-10-10 07:53 | W.PN.HOSP.TC ---
Addendum entered and electronically signed by Yulia Kam MD 10/10/23 19:37:
I saw and evaluated the patient independently. I reviewed the resident�s note and agree with findings and plan as documented by Dr. [place].
GENERAL: well developed, well nourished, male in no apparent distress--sitting up in bed
HEENT: NC/AT
HEART: regular rate and rhythm, +S1, +S2
LUNGS : clear to auscultation bilaterally
ABDOM: soft, nontender, nondistended, + bowel sounds
EXT: no cyanosis, clubbing, or edema
NEUROLOGIC: grossly intact
Headache--presumed spinal s/p epidural injection ( not LP, pt had epidural not LP) -- had 2 blood patches without relief--MRI within normal limits--apprec IR input - Maintain supine positioning / head of bed flat - Tylenol and toradol as needed for
additional pain control- encouraged patient to take it easy for a few days and maintain hydration- CT on admission: Multiple scattered small foci of pneumocephalus are likely secondary to the reported history of a recent epidural injection--apprec
neuro consult--further w/u as outpt
ADHD- Continue home meds PRN
Low Back Pain--s/p epidural injection
Crohn's Disease - Stable. No other acute / active symptoms at this time.
DVT Prophylaxis: SCDs
Code Status: Full
Original Note:
Today's Communication/Plan
-
Neurology discussed plans for outpatient testing and evaluation. Discharged today.
Assessment / Plan
Assessment / Plan
#Post-epidural steroid injection Headache- Spinal headache
- Received Blood patch with IR today
- L5 epidural steroid shot by IR ([place]) on 10/02/23
- Maintain supine positioning / head of bed flat.
- Tylenol and toradol as needed for additional pain control.
- Headache should start to improve by this evening or tomorrow.
- encouraged patient to take it easy for a few days and maintain hydration
- IR is unsure of why the patient continues to have headaches. Recommended neuro consultation
- MRI shows no acute intracranial abnormality. 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
- Neurology Has high clinical suspicion of postdural puncture headache.
-Neuro discussed plan to obtain urgent thoracic and lumbar spine with and without contrast on an outpatient basis within the next week.
-Neuro will follow-up in outpatient.
-Clinically stable to discharge today.
- CT: Multiple scattered small foci of pneumocephalus are likely secondary to the reported history of a recent epidural injection.
#ADHD
- Continue home meds PRN
#Low Back Pain
#Crohn's Disease
- Stable. No other acute / active symptoms at this time.
DVT Prophylaxis: SCDs
Code Status: Full
Anticipated Discharge: Today
Subjective/Interval History
-
Date of Service: October 10, 2023
Objective Data
-
Labs:
Laboratory Results
10/10/23
06:19
WBC 8.3
Hgb 13.7
Hct 41.0
Plt Count 285
Sodium 140
Potassium 4.8
Chloride 106
Carbon Dioxide 30
BUN 24 H
Creatinine 0.9
Glucose 96
Calcium 9.2
Vital Signs:
Vital Signs
Temp Pulse Resp BP Pulse Ox
97.8 F 73 16 118/74 97
10/10/23 07:51 10/10/23 07:51 10/10/23 07:51 10/10/23 07:51 10/10/23 07:51
I&O
10/09/23 10/10/23 10/11/23
06:59 06:59 06:59
Intake Total 990 / 990 1440 / 1440
Balance 990 / 990 1440 / 1440
Review of Systems
-
History Source: Patient
EENT: Reports No Symptoms Reported
Respiratory: Reports No Symptoms
Cardiac: Reports No Symptoms
Abdomen/GI: Reports No Symptoms
Genitourinary: Reports No Symptoms
Neuro: Reports Headache (with standing. no headache while supine)
Physical Exam
-
General: Well Developed, Well Nourished and No Apparent Distress
Respiratory: Clear to Auscultation
Cardiac: Regular Rhythm and S1/S2
GI: Soft, Nontender, Nondistended and Normal Bowel Sounds
Musculoskeletal: No Edema
Neuro: AO x 3
Psych: Calm
--- NOTE | 2023-10-10 08:26 | CON.NEURO4 ---
Addendum entered and electronically signed by Rodrick Mary MD 10/10/23 14:41:
I saw and evaluated patient I reviewed note by Taty Pruitt agree with the findings the following comments:
33-year-old male with a past medical history of lumbar degenerative disc disease and back pain presented to hospital due to significant headaches especially worse with standing. He denies any overt double vision or vision loss slurred speech or
recent vomiting.
He had initially had epidural steroid injection on October 01 and the procedure went well and was able to golf that day but the next day 09/27 5 in the morning he had significant severe headache while standing, and noticed that the headache was
positional with clear worsening with standing generally within a couple of minutes and sometimes 30 minutes before significant headache limiting function. He underwent blood patch on 10/03 and 10/07 without any improvement in symptoms.
He continues to still have significant headache which is worsened with sitting up and standing up.
Before the epidural steroid injection he had not had any instances of minor or major trauma and did not have tendency towards headaches. With his headaches he can have some intermittent photophobia but no phonophobia nausea vomiting or significant
vision changes.
Neurologic examination with normal mental status, no cranial nerve deficits seen, motor function with no tremor no pronator drift normal bulk and tone normal strength of arms and limbs and symmetric manner with symmetric reflexes no pathologic reflex
MRI brain reviewed without any abnormal enhancement or could have corpus callosum
Assessment: Although brain MRI normal I still have high clinical suspicion of post dural puncture headache producing CSF hypotension as brain MRI will not always be abnormal in these cases. He does not seem to have any other good explanation such
as minor major trauma or as an antecedent to a clear positional headache. Absence of significant current photophobia nausea/vomiting fever or leukocytosis I think makes an septic meningitis very unlikely.
Recommendations
-Discussed the plan with the patient for us to obtain an urgent thoracic and lumbar spine with and without contrast on an outpatient basis which would be plan for next week, this would be to assess if there are any unusual spinal pathologies present
and to see if we can visualize the leak which could allow for a targeted blood patch which may be more effective. If this is not effective then we could consider further conservative management versus pursuing myelogram
-Will arrange for follow up with neurology after the MRI spine studies
-In the meantime discussed that he could use up to 4000 mg daily Tylenol, would limit ibuprofen and NSAIDs to only 2 to 3 days of the week maximum and encouraged a lot of hydration and caffeine
Original Note:
Consultation - Neurology 4
-
CONSULTING PHYSICIAN: Tre Mary MD
REFERRING PHYSICIAN: Hospitalists/Dr. Colorado, Resident
DICTATED BY: PHILIP Garcia
DATE/TIME OF REQUEST: 10/09/23
DATE/TIME OF CONSULTATION: 10/10/23
Reason for Consultation: Headache
History of Present Illness:
This is a 33-year-old right-handed male who has presented to the hospital on 10/08/23 with report of persistent positional headache. Patient reports chronic lumbar DDD/DJD for which he receives lumbar TALAT. He received a lumbar TALAT at on 10/02/23
in which he reports the first attempt was complicated by CSF leaking, so an alternative location was used for the injection. Upon leaving his appointment, he reports developing a splitting headache. He assumed he was dehydrated and started drinking
more water, and proceeded to go golfing that day. His headache resolved that night and he slept well, but reports that he woke up the following morning (10/03/23) and one hour into working on his feet (he works in [employer]), his splitting headache
returned. He received a blood patch on 10/04/23 with minimal relief of his postural headache. He received a second blood patch on 10/08/23 when his symptoms still hadn't improved, and he returned to the ER that evening due to ongoing symptoms. MRI
brain was obtained on 10/09/23 and is negative for any acute abnormalities.
Patient reports an intermittent 1-2/10 dull frontal headache when lying flat. When he sits or stands for longer than a few minutes he develops an 8-10/10 pounding frontal headache that is completely relieved after a few minutes of lying flat.
Toradol and Tylenol have provided minimal relief. He reports intermittent photophobia with his severe headaches, denies phonophobia, nausea, or vomiting. He also endorses short term memory difficulty and fatigue since his procedure on 10/02/23. When
he sits upright he develops a bilateral sciatica discomfort down both legs, left>right. Standing gives him an instant 'head del castillo' sensation. He denies any neck stiffness, neck/back pain, fevers/chills, vision changes, speech/swallow difficulty,
weakness, chest pain, palpitations, and shortness of breath.
Past Medical History: ADHD, Crohn's disease, low back pain, rib fracture, concussion playing football, lumbar DDD/DJD
Surgical History: Lumbar TALAT 10/02/23, appendectomy, wisdom teeth removal, partial small bowel resection
Family History: Reviewed and noncontributory.
Social History: Brief former smoker. Occasional alcohol. Denies illicit drug use.
Allergies: No known allergies.
Home Medications: See below.
Review of Symptoms:
Patient denies any fever, chest pain, shortness of breath, GI or symptoms.
�Per the HPI.�All systems are reviewed negative except above.
Physical Exam:
The patient is afebrile, abdomen is nondistended, breathing is unlabored, skin is warm and dry, no edema.
Neurologic Examination:
The patient is awake, alert and oriented x 3. He is able to follow commands and answer questions appropriately. There is no aphasia or dysarthria. On cranial nerve assessment, pupils are 3 mm bilateral, round and reactive to light and
accommodation. Visual nesbitt are full. Extraocular movements are intact, endorses eye strain with lateral eye movements. Facial sensations are intact and bilaterally symmetrical, there is no facial asymmetry. Hearing is intact bilaterally to normal
conversation volume. Tongue palate and uvula are midline. Sternocleidomastoid strengths are full bilaterally. Motor strengths are 5/5 bilateral upper and lower extremities on medical research [place] scale. There is no drift or involuntary movement
noted. Deep tendon reflexes are 2+ bilateral upper and lower extremities and Babinski is absent bilaterally. Sensations of touch, temperature and vibration are intact and bilaterally symmetrical. There was no extinction noted on double simultaneous
stimulation. Coordination is intact by finger to nose bilaterally.
Lab Results: See below.
Neuro Imaging:
1. CT Head 10/03/23: Multiple scattered small foci of pneumocephalus are likely secondary to the reported history of a recent epidural injection.
2. MRI brain 10/09/23: No acute intracranial abnormality. 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
Differentials for the patient's presentation include:
1. Positional headache likely due to persistent CSF leak s/p lumbar TALAT.
2. Very low concern for alternative headache source.
3. Incidental finding pineal cyst.
Patient has the following risk factors for their symptoms: Lumbar TALAT 10/02/23
Recommendations:
-Need MRI thoracic and lumbar spine with contrast in the next week to attempt to visualize source of CSF leak. This can be completed as an outpatient due to observation status.
-Patient will need follow-up with Neurology as an outpatient early next week to facilitate MRI imaging next week.
-Continue flat bedrest. Increase water intake and drink daily caffeine.
-PRN Tylenol for headache. Only use ibuprofen 2-3 days per week.
-If MRI fails to localize source of CSF leak, will need spinal myelogram to visualize leak.
-Provided patient our office info for urgent follow-up in the next several days, may see any of the physicians, as the [facility] EDGER will not be in the office.
Discussed patient care with: Dr. Mary, the patient
Vital Signs and Labs
-
Vital Signs and Labs:
Vital Signs
Temp Pulse Resp BP Pulse Ox
97.8 F 73 16 118/74 97
10/10/23 07:51 10/10/23 07:51 10/10/23 07:51 10/10/23 07:51 10/10/23 07:51
Lab Results
10/10/23 06:19
10/10/23 06:19
Sodium 140 mmol/L (135-145) 10/10/23 06:19
Potassium 4.8 mmol/L (3.5-5.1) 10/10/23 06:19
BUN 24 mg/dl (9-20) H 10/10/23 06:19
Glucose 96 mg/dl (70-99) 10/10/23 06:19
Calcium 9.2 mg/dl (8.4-10.2) 10/10/23 06:19
Medications
-
Active Medications
Generic Name Dose Route Start Last Admin
Trade Name Freq PRN Reason Stop Dose Admin
Acetaminophen 650 mg 10/09/23 00:48 10/10/23 10:51
Acetaminophen 325 Mg Tablet PO 11/06/23 00:47 650 mg
Q4HPRN PRN Administration
Mild Pain / Temp > 101
Acetaminophen/Butalbital/Caffeine 1 tab 10/09/23 01:30
Butalbit/Acetaminophen/Caffeine PO 11/06/23 01:29
Q4H PRN
HEADACHE
Lactated Ringer's 1,000 mls @ 125 mls/hr 10/09/23 00:48 10/10/23 10:53
Lr IV 1,000 mls
.Q8H LACIE Administration
Ketorolac Tromethamine 15 mg 10/09/23 00:48 10/09/23 20:57
Ketorolac 15 Mg/Ml Injection IV 10/14/23 00:47 15 mg
Q6HPRN PRN Administration
Moderate Pain
Sodium Chloride 0 flush 10/09/23 02:00
Sodium Chloride 0.9% (Flush) Syringe IV 11/06/23 01:59
PER PROTOCOL LACIE
Home Medications
�Medication �Instructions �Recorded
dextroamphetamine-amphetamine 5 mg 5 mg PO DAILY Neurological 06/21/23
tablet (Adderall) Condition
butalbital 50 mg-acetaminophen 300 1 cap PO Q4H PRN HEADACHE #10 caps 10/03/23
mg-caffeine 40 mg-codeine 30 mg
cap (Fioricet with Codeine)
[2023-10-10] MEDS: TYLENOL 650 MG PO (10:51)
[2023-10-10] MEDS: LR 1000 IV (10:53)
[2023-10-10] MEDS: LR IV (10:53)
--- NOTE | 2023-10-10 11:31 | CM ---
Addendum entered by Sury Benito 10/10/23 12:05:
CM called to billing at patient request they will call him back and CM spoke with advocate to request she look into patient concerns. CM called to patient room to give him the phone number for advocate, but no answer. CM called to patient cell and
no answer, VM left. Patient nurse given information via tt.
Original Note:
Patient seen at bedside with physicians. Patient upset at OBS status and complaining that he was not told in ED. CM reviewed with physician and await medical treatment plan review. Patient eager to go home if medically appropriate. CM will continue
to follow for discharge planning needs.
Plan; home with no needs anticipated
[2023-10-10 13:57] VITALS: BP 117/70
--- NOTE | 2023-10-10 18:38 | W.DCSUMMARY ---
Addendum entered and electronically signed by Yulia Kam MD 10/10/23 19:39:
Read, reviewed, and agree. See same day progress note for additional details. Time spent coordinating care, DC planning, review of DC plan of care with resident, transition of care, review of records in EMR, med rec, consults, notes, d/w
consultants, nursing, family, and CM= 28 mins
Original Note:
Discharge Summary
Discharge Data
Date of Admission: 10/08/23
Date of Discharge: 10/10/23
-
Pending Results: No
Hospital Course
Primary Diagnosis:
-Spinal headache post epidural steroid injection
Secondary diagnosis:
-Attention deficit hyperactivity disorder
-Crohn's disease
Hospital Course:
Ambrosio Yan is a 33-year-old male with a past medical history of ADHD and lower back pain who presented to the ED complaining of a headache. Patient stated that he underwent LESI on 10/01 for chronic low back pain. He was admitted to on 10/02 with
spinal headache post-procedure. Patient has received blood patch x 2 on 10/03 and again on 10/07. After first blood patch, patient was at home and increased his position to about 30 degrees or so. He promptly developed recurrent headache. His
symptoms fully resolve when lying supine. Patient spoke with IR who advises return to the ED for further evaluation including MRI. Interventional radiology and neurology saw patient. Both suspected it was due to CSF leak. CT done on 10/02 showed
multiple scattered small foci of pneumocephalus likely secondary to reported history of recent epidural injection. Otherwise normal. MRI done on 10/09/2023 showed no acute intracranial abnormalities and incidental lesion noted 1.2 cm pineal cyst.
While here he was put on IV fluids and monitored. Interventional radiology evaluated and suspected CSF leak headache. Neurology concurred. Neurology discussed plans with patient to obtain urgent thoracic and lumbar spine MRI with and without
contrast on an outpatient basis which would plan for next week. Neurology discussed he can use up to 4000 mg daily of Tylenol, but would limit ibuprofen and NSAIDs only 2 to 3 days a week maximum and encouraged hydration and caffeine.
Today, patient is clinically stable and ready for discharge with recommendations to follow-up with outpatient neurology.
Discharge Plan
-
Patient Disposition: Home (Routine Discharge)
Discharge Diagnosis/Procedures: Spinal headache post epidural steroid injection, attention deficit hyperactivity disorder, Crohn's disease
Condition: Good
Diet: As tolerated
Activity: As tolerated
Driving Restrictions: Not until seen by your Dr
Bathing Restrictions: None
Referrals:
Rodrick Mary MD [Active] - in one week
Diego Johnson MD [Family Provider] - in one week
()
Prescriptions:
Continued
dextroamphetamine-amphetamine [Adderall] 5 mg Tablet
5 mg PO DAILY
[id number] [Fioricet with Codeine] 85-276-84-30 mg capsule
1 cap PO Q4H PRN (Reason: HEADACHE) Qty: 10 0RF
Discharge Orders:
Discharge Patient (As Directed); Ordered 10/10/23
Ordered By: Edilma Colorado
Discharge Date and Time
Discharge Date/Time: 10/10/23 14:39
Print Language: GAMBIAN
== END 2023-10-10 14:39 | disposition home or self-care (01) ==
LOC: 3 WEST ACU 23:42
PROVIDERS: ADMITTING PHYSICIAN Hospitalist; ATTENDING PHYSICIAN Internal Medicine; EMERGENCY PHYSICIAN Emergency Medicine; FAMILY PHYSICIAN Family Medicine; OTHER PHYSICIAN Student in an Organized Health Care Education/Training Program
DX: R51.9 Headache, unspecified (principal); G93.89 Other specified disorders of brain; F90.9 Attention-deficit hyperactivity disorder, unspecified type; M54.50 Low back pain, unspecified; G89.29 Other chronic pain; R53.83 Other fatigue; D35.4 Benign neoplasm of pineal gland; K50.90 Crohn's disease, unspecified, without complications; F17.200 Nicotine dependence, unspecified, uncomplicated; Z90.49 Acquired absence of other specified parts of digestive tract
CPT/HCPCS: 62273; 70553; 80048; 80053; 85025; 85027; 99285; A9575; G0378